=== PATIENT | male | born 1995 | race African-American/Black ===

== ENCOUNTER 2025-04-30 12:06 | Emergency (ER) | payer BC ==
[~2025-04-30] VITALS: Ht 185.4 cm; Wt 95.3 kg
[2025-04-30 12:14] VITALS: BP 139/82
[2025-04-30 12:35] LABS: *BILIRUBIN,URIN NEGATIVE (NEGATIVE); *CLARITY,URINE CLEAR (CLEAR); *COLOR,URINE YELLOW (YELLOW); *KETONES,URINE NEGATIVE (NEGATIVE); *PROTEIN,URINE TRACE (NEGATIVE); *UROBILINOGEN,URINE 0.2 E.U./dl (NORMAL); LEUKOCYTE ESTERASE ,URINE TRACE (NEGATIVE); NITRITE, URINE NEGATIVE (NEGATIVE); UGLUCOSE NEGATIVE (NEGATIVE)
[2025-04-30 12:36] LABS: *BLOOD, URINE TRACE (NEGATIVE)
[2025-04-30] MEDS ORDERED: DOXY100C5 PO (13:44)
[2025-04-30] MEDS ORDERED: CEFTRIAXONE 500 MG VIAL ONE (13:46)
[2025-04-30] MEDS ORDERED: DOXYCYCLINE HYCLATE 100 MG TABLET ONE (13:46)
[2025-04-30] MEDS: CEFTRIAXONE 500 MG VIAL IM ONE (13:55)
[2025-04-30] MEDS: DOXYCYCLINE HYCLATE 100 MG TABLET PO ONE (13:55)
[2025-04-30 14:02] VITALS: BP 130/80; O2SAT 98
[2025-05-01 16:07] LABS: *CHLAMYDIA NAA Negative (Negative); *GC NAA Negative (Negative); *TRIC.VAG. NAA Negative (Negative)
== END 2025-04-30 14:03 | disposition home or self-care (01) ==
LOC: ER 12:06
DX: N34.2 Other urethritis (principal)
CPT/HCPCS: 99283; 81001; 87086; 96372; 87491; J0696; A4606; A4663

== ENCOUNTER 2025-05-22 16:22 | Emergency (ER) | payer BC ==
[~2025-05-22] VITALS: Ht 185.4 cm; Wt 95.3 kg
[~2025-05-22 16:22] MED LIST: DOXY100C5 PO
[2025-05-22 16:26] VITALS: BP 127/74
[2025-05-22 16:43] LABS: *BILIRUBIN,URIN 1+ (NEGATIVE); *BLOOD, URINE 2+ (NEGATIVE); *CLARITY,URINE CLEAR (CLEAR); *COLOR,URINE YELLOW (YELLOW); *KETONES,URINE 2+ (NEGATIVE); *PROTEIN,URINE 1+ (NEGATIVE); *UROBILINOGEN,URINE 0.2 E.U./dl (NORMAL); LEUKOCYTE ESTERASE ,URINE NEGATIVE (NEGATIVE); NITRITE, URINE NEGATIVE (NEGATIVE); UGLUCOSE NEGATIVE (NEGATIVE)
[2025-05-22 16:52] LABS: SQUAMOUS EPITHELIAL CELL,UR FEW /HPF (NONE SEEN)
[2025-05-22] MEDS ORDERED: TINI500T18 PO (17:11)
[2025-05-22 17:28] VITALS: BP 127/74; O2SAT 99
== END 2025-05-22 17:29 | disposition home or self-care (01) ==
LOC: ER 16:30
DX: N34.2 Other urethritis (principal)
CPT/HCPCS: 87086; A4606; A4663